=== PATIENT | male | born 1940 | race Caucasian/White ===

== ENCOUNTER 2016-02-28 17:30 | Inpatient (IN) | payer MEDICARE, OTHER ==
--- NOTE | ~2016-02-28 | DS ---
PATIENT'S NAME: VALENTINA MOORE [facility] AGE: 75 Y [address] ROOM: [id number] [place], [place] [address] LOCATION: GPCU ADMIT DATE: 02/28/2016 Discharge Summary DISCHARGE DATE: 03/06/2016 FAMILY PHYSICIAN: Sahil Tillman MD ATTENDING PHYSICIAN: Abdi Leung [facility] COURSE: The patient is a 75-year-old white male who transferred here from [place] where he had presented with a cht-ZD-vnzxkipd myocardial infarction. He underwent cardiac catheterization with Dr. Murcia with findings of multivessel coronary artery disease requiring surgical revascularization. The patient was transferred to [facility] at the family's request for coronary artery bypass grafting. On 03/01/2016, the patient underwent coronary artery bypass grafting x3 vessels by Dr. Leung with a left internal mammary artery bypass to the left anterior descending artery, right internal mammary artery bypass to the right coronary artery, and a reverse saphenous vein graft to the obtuse marginal. The patient tolerated the surgery without complication and transferred up to the ICU postoperatively. The patient extubated easily on the same operative day. He did require drip with Levophed which kept him in the ICU an additional day. He was otherwise stable. On postoperative day two, the Levophed was weaned off and the patient was found stable to transfer to the progressive care floor. While on progressive care, the patient worked with cardiac rehab for strengthening purposes. His chest tubes, pacemaking wires, and Bolanos catheter were discontinued in the routine postoperative timeframe. The patient had no healing complications. He had no runs of postoperative atrial fibrillation. The patient's blood pressures still ran low and we did have to start some low dose ProAmatine. Eventually, we were able to discontinue the ProAmatine in favor of placing a beta jayne at the time of the patient's discharge. We were unable to start an KELLEY inhibitor secondary to the lower blood pressures and this will need to be re-evaluated in followup. The patient did desire discharge to home when appropriate. He did not desire any home health care services. On 03/06/2016, the patient was found stable for discharge. DISCHARGE ORDERS: Include a cardiac prudent diet. Activity levels which require no pulling, pushing, or lifting anything heavier than 10 pounds for 6 weeks from the day of surgery. The patient is to follow up with Dr. Murcia in 2 weeks as [address] as Dr. Leung in 2 weeks. He will also follow with his primary care provider Dr. Tillman in 4 weeks. The patient should start with cardiac rehab in approximately 2 weeks in [place]. FINAL DIAGNOSES: Include fer-AZ-wffoqdtxl myocardial infarction, coronary artery disease, hypertension, and dyslipidemia. PATIENT'S NAME: VALENTINA MOORE [facility] AGE: 75 Y [address] ROOM: [id number] [place] [id number] [facility] ADMIT DATE: 02/28/2016 Discharge Summary DISCHARGE DATE: 03/06/2016 FAMILY PHYSICIAN: Sahil Tillman MD ATTENDING PHYSICIAN: Abdi Leung DISCHARGE MEDICATIONS: Include. 1. Aspirin 325 mg. 2. Coenzyme Q10 100 mg daily. 3. Coreg 3.125 mg twice a day. 4. Folic acid 1 mg daily. 5. Multivitamin daily. 6. Simvastatin 40 mg daily. 7. Prilosec 20 mg daily. 8. Amiodarone 200 mg twice a day. 9. Colace 100 mg twice a day. 10. Lasix 40 mg daily. 11. Potassium chloride 20 mEq daily. 12. Marenisco 5/325 one to two every 4-6 hours. The patient verbalizes understanding of the discharge orders. The patient discharged to home with his family in stable condition. NURY STOUT APRN FOR ABDI LEUNG, DLQ/modl /[id number] d: 03/29/161311 t: 04/09/16 0944, DISCHARGE SUMMARY
--- NOTE | ~2016-02-28 | ENPV ---
Vascular Lower Extremity Vein Mapping and Lower Extremities DVT Study Procedure Demographics Patient Name VALENTINA MOORE Date of Study 02/29/2016 Patient Number [id number] Gender Male Date of 1940 Age 75 Visit Number [id number] Height 67 Accession Number [id number] Weight 153 Referring Jadiel Luque DO Interpreting Robby Diaz MD Physician Primo Matos MD Physician Ordering Jadiel Luque Clinical Assistant Professor Physician DO Hack Saw Operator Cosme Nino, T Conclusions Summary Acute occlusive deep vein thrombosis in the right proximal posterior tibial and peroneal veins. Chronic non-occlusive deep vein thrombosis in the left popliteal vein. Bilateral greater saphenous veins are patent. Procedure Type of Study: Veins:Lower Extremity Vein Mapping, Vein Mapping, Lower Extremities DVT Study, Venous Duplex Lower Extremity Bilateral. Indications for Study:Pre-op for vein harvesting and Pre-op CABG. Appropriate Use Criteria:8 Patient Status:Routine. Study Location:Inpatient Portable. Technical Quality:Adequate visualization. - Preliminary reported to:Dr. Duvall @ [phone]. Velocities are measured in cm/s ; Diameters are measured in cm Right Lower Extremities DVT Study Measurements Right 2D and Doppler Measurements + + + + +------+------+ + !Location !Visualized!Compressibility!Thrombosis!Signal!Reflux!Reflux ! ! ! ! ! ! ! !(sec) ! + + + + +------+------+ + !GSV Thigh !Yes !Yes !None !Phasic!No ! ! + + + + +------+------+ + !Common !Yes !Yes !None !Phasic!No ! ! !Femoral ! ! ! ! ! ! ! + + + + +------+------+ + !Prox !Yes !Yes !None !Phasic!No ! ! !Femoral ! ! ! ! ! ! ! + + + + +------+------+ + !Mid Femoral!Yes !Yes !None !Phasic!No ! ! + + + + +------+------+ + !Dist !Yes !Yes !None !Phasic!No ! ! !Femoral ! ! ! ! ! ! ! + + + + +------+------+ + !Popliteal !Yes !Yes !None !Phasic!No ! ! + + + + +------+------+ + !Gastroc !Yes !Yes !None !Phasic!No ! ! + + + + +------+------+ + !PTV !Yes !No !Acute !Absent! ! ! + + + + +------+------+ + !Peroneal !Yes !No !Acute !Absent! ! ! + + + + +------+------+ + Left Lower Extremities DVT Study Measurements Left 2D and Doppler Measurements + + + + +------+------+ + !Location !Visualized!Compressibility!Thrombosis!Signal!Reflux!Reflux ! ! ! ! ! ! ! !(sec) ! + + + + +------+------+ + !GSV Thigh !Yes !Yes !None !Phasic!No ! ! + + + + +------+------+ + !Common !Yes !Yes !None !Phasic!No ! ! !Femoral ! ! ! ! ! ! ! + + + + +------+------+ + !Prox !Yes !Yes !None !Phasic!No ! ! !Femoral ! ! ! ! ! ! ! + + + + +------+------+ + !Mid Femoral!Yes !Yes !None !Phasic!No ! ! + + + + +------+------+ + !Dist !Yes !Yes !None !Phasic!No ! ! !Femoral ! ! ! ! ! ! ! + + + + +------+------+ + !Popliteal !Yes !Partial !Chronic !Phasic!No ! ! + + + + +------+------+ + !Gastroc !Yes !Yes !None !Phasic!No ! ! + + + + +------+------+ + !PTV !Yes !Yes !None !Phasic!No ! ! + + + + +------+------+ + !Peroneal !Yes !Yes !None !Phasic!No ! ! + + + + +------+------+ + Velocities are measured in cm/s ; Diameters are measured in cm + ++--------++--------+ !Superficial - Great Saphenous Vein !!Right !!Left ! + ++--------++--------+ !Location !!Diameter!!Diameter! + ++--------++--------+ !Sapheno Femoral Junction !!0.51 !!0.71 ! + ++--------++--------+ !GSV High Thigh !!0.16 !!0.3 ! + ++--------++--------+ !GSV Mid Thigh !!0.16 !!0.25 ! + ++--------++--------+ !GSV Low Thigh !!0.12 !!0.32 ! + ++--------++--------+ !GSV Knee !!0.21 !!0.16 ! + ++--------++--------+ !GSV High Calf !!0.16 !!0.18 ! + ++--------++--------+ !GSV Mid Calf !!0.21 !!0.15 ! + ++--------++--------+ !GSV Low Calf !!0.25 !!0.22 ! + ++--------++--------+ !GSV Ankle !!0.24 !!0.25 ! + ++--------++--------+ - Number of vein branches on the right side:1 above knee. - Number of vein branches on the left side:1 above knee and 1 below knee. Signature dtt: INSH LOVE dtd: 02/29/16 1648 Physician Self Edit
--- NOTE | ~2016-02-28 | HP ---
PATIENT'S NAME: VALENTINA MOORE [facility] AGE: 75 Y [address] ROOM: [place] [address] LOCATION: GPCU ADMIT DATE: 02/28/2016 History & Physical DISCHARGE DATE: 03/06/2016 FAMILY PHYSICIAN: Sahil Tillman MD ATTENDING PHYSICIAN: Abdi Duvall HISTORY OF PRESENT ILLNESS: The patient is a 75-year-old white male, who presented to [facility] in [place] with chest discomfort. He was ruled in for a yeq-KU-ykcnwcj myocardial infarction. He was taken to the catheterization lab by Dr. Del Rosario, where multi-vessel coronary artery disease was found, and he was transferred for further care to here at [facility]. Upon arrival, he is pain free without shortness of breath. He is on a heparin drip and his vital signs are completely normal. Upon discussion with him, the pain began the night before and he proceeded to the emergency department. He does have a history of prior stenting in the LAD and the right coronary artery and in circumflex, the catheterization has shown severe in-stent stenosis in all three vessels. PAST MEDICAL HISTORY: Significant for: 1. Coronary artery disease. 2. Hypertension. 3. Hypercholesterolemia. MEDICATIONS: His home medications are: 1. Aspirin 325 daily. 2. Carvedilol 25 mg b.i.d. 3. CoQ10 supplement daily. 4. Folic acid 1 mg daily. 5. Lisinopril 10 mg daily which was recently discontinued and changed to losartan 25 mg daily. 6. Multivitamin daily. ALLERGIES: ALDACTONE WHICH CAUSED HIVES. ERYTHROMYCIN GAVE HIM NAUSEA. IODINATED CONTRAST WHICH CAUSES A RASH, AND PENICILLINS WHICH ALSO CAUSES A RASH. PAST SURGICAL HISTORY: Significant for previous percutaneous intervention to his coronary arteries. SOCIAL HISTORY: The patient is a lifelong nonsmoker and does not consume much alcohol. 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 He follows with Dr. Tillman closely. PATIENT'S NAME: VALENTINA MOORE [facility] AGE: 75 Y [address] ROOM: [place] [address] LOCATION: GPCU ADMIT DATE: 02/28/2016 History & Physical DISCHARGE DATE: 03/06/2016 FAMILY PHYSICIAN: Sahil Tillman MD ATTENDING PHYSICIAN: Abdi Duvall REVIEW OF SYSTEMS: As per the history of chief complaint. Otherwise, 10-point review is negative. PHYSICAL EXAMINATION: GENERAL APPEARANCE: Reveals an alert and oriented white male, in no acute distress. VITAL SIGNS: He is in normal sinus rhythm with a normal blood pressure. He is on 2 L of oxygen and saturating 98%. HEENT: Shows his head to be normocephalic. No evidence of trauma. His extraocular muscles are intact. His pupils are equal, round, and reactive to light and accommodation. NECK: Soft without evidence of tracheal deviation. No JVD is appreciated. HEART: Regular rate and rhythm without murmur or gallop. LUNGS: Clear to auscultation bilaterally. ABDOMEN: Soft, nontender. Bowel sounds are positive. No organomegaly, aortic pulse, or aortic masses are appreciated. EXTREMITIES: Show no evidence of cyanosis, clubbing, or edema. LABORATORY AND TEST RESULTS: On transfer shows a white blood cell count of 8.3, hemoglobin of 16, hematocrit of 49, and a platelet count of 178. INR 1.3. Sodium 135, potassium 3.9, BUN of 12 with a creatinine of 0.8. Liver functions are within normal limits, and his GFR is greater than 60. He had an elevated troponin I of 1.54, elevated CPK-MB of 12.7. He will be admitted. IMPRESSION: Lum-AA-rzvxspv myocardial infarction secondary to multi-vessel coronary artery disease with in-stent stenosis. PLAN AND RECOMMENDATIONS: He will be admitted to the progressive care unit. We will continue normal saline at 100 mL an hour for 1 L and then dropped back to TKO rate. Continue heparin drip per ACS protocol, and secondary to his Plavix loading, we will obtain P2Y12 levels and plan for surgical intervention on 03/01. He and his family are understanding of the plan. Risks, benefits, and alternatives of coronary artery bypass grafting had been explained to him and his family. These are including but not limited to bleeding, requiring transfusion, return to the operative suite, myocardial infarction, cerebrovascular attack, renal and pulmonary failure, postoperative arrhythmias, postoperative infections, and operative and postoperative mortality. We will continue to follow along closely and plan on surgical intervention as noted above on 03/01/2016. PATIENT'S NAME: VALENTINA MOORE [facility] AGE: 75 Y [address] ROOM: [place] [address] LOCATION: [facility] ADMIT DATE: 02/28/2016 History & Physical DISCHARGE DATE: 03/06/2016 FAMILY PHYSICIAN: Sahil Tillman MD ATTENDING PHYSICIAN: Abdi Duvall DO VALERY GUERRERO/mark /[id number] D: 617 T: HISTORY & PHYSICAL
--- NOTE | ~2016-02-28 | ECHO ---
Transthoracic Echocardiography Report (TTE) Demographics Patient Name VALENTINA MOORE Date of Study 02/29/2016 Patient Number [id number] Visit Number [id number] Date of 1940 Room Number G6216 Gender Male Number Age 75 year(s) Referring [facility] Last Puller Cydney MAGALLANES, Physician Carlo [facility] [place] Physician Interpreting Katrin Luque MD Cook Night Physician Supervising Ordering Jadiel Luque DO, MD/MLP Physician Nurse Stress Manager Access Conclusions Contractility Score Summary Hypokinesis of the julius-septal, the infero-septal, the inferior and the Apical septal segments. Summary The estimated left ventricular ejection fraction is 45-50%. Mild concentric left ventricular hypertrophy. Diastolic assessment reveals Grade II pseudonormal diastolic function . Procedure Type of Study TTE procedure:2D Echocardiogram, M-Mode, Doppler , Color Doppler. Procedure Date Date: 02/29/2016 Start: 12:21 PM Study Location: Inpatient Portable Technical Quality: Adequate visualization Additional Indications:non stemi Appropriate Use Criteria: 9 Patient Status: Routine HR: 86 bpm BP: 141/78 mmHg M-Mode/2D Measurements LV Diastolic Dimension: 4.41 cm LV Systolic Dimension: 3.51 cm LV Septum Diastolic: 1.12 cm LV PW Diastolic: 0.8 cm AO Root Dimension: 2.4 cm Cardiac Output: 4.75 l/min AV Cusp Separation: 1.9 cm RV Diastolic Dimension: 2.01 cm LA volume: 31 ml LVOT: 2 cm RV Base: 2.47 cm LVOT VTI: 17.6 cm RV Mid: 2.02 cm LV Stroke volume: 55.26 ml TAPSE: 1.83 cm TDI-S': 14.3 cm/s Doppler Measurements AV Peak Velocity: 0.86 m/s MV Peak E-Wave: 0.62 m/s AV Peak Gradient: 2.97 mmHg MV Peak A-Wave: 0.6 m/s AV Mean Gradient: 2 mmHg MV E/A Ratio: 1.04 LVOT Peak Velocity: 0.74 m/s MV P1/2t: 38 msec TR Gradient:27.67 mmHg PV Peak Velocity: 1.44 m/s Estimated RAP:3 mmHg PV Peak Gradient: 8.29 mmHg Estimated RVSP: 31 mmHg Estimated PASP: 30.67 mmHg E' Septal Velocity: 0.05 m/s A' Septal Velocity: 0.08 m/s E' Lateral Velocity: 0.05 m/s A' Lateral Velocity: 0.12 m/s Findings Left Ventricle Mild concentric left ventricular hypertrophy. Diastolic assessment reveals Grade II pseudonormal diastolic function . Right Ventricle Normal right ventricle structure and function. Left Atrium Normal left atrial size. Right Atrium Normal right atrial size. Mitral Valve Trivial mitral regurgitation by color Doppler. Aortic Valve Normal aortic valve structure and function. Tricuspid Valve Trivial tricuspid regurgitation by color Doppler. Pulmonic Valve Normal pulmonic valve structure and function. Pericardial Effusion No evidence of pericardial effusion. Pleural Effusion No evidence of pleural effusion. Contractility Score LV regional wall motion:(0-Non visualized 1-Normal 2-Hypokinesis 3-Akinesis 4-Dyskinesis 5-Aneurysm) Signature dtt: Rebel Wilkes (cardio) dtd: 02/29/16 1221 Physician Self Edit
--- NOTE | ~2016-02-28 | OR ---
PATIENT'S NAME: VALENTINA MOORE [facility] AGE: 75 Y [address] ROOM: [address] [place], [place] [address] LOCATION: GPCU ADMIT DATE: 02/28/2016 OR/Procedure Report DISCHARGE DATE: 03/06/2016 FAMILY PHYSICIAN: Sahil Tillman MD ATTENDING PHYSICIAN: Abdi Duvall SURGEON: Abdi Duvall DO BAG TURNER: DATE OF PROCEDURE: 03/01/2016 PREOPERATIVE DIAGNOSIS: Multivessel coronary artery disease with non ST- segment elevation myocardial infarction. POSTOPERATIVE DIAGNOSIS: Multivessel coronary artery disease with non ST- segment elevation myocardial infarction. PROCEDURES PERFORMED: Coronary artery bypass grafting x3 with left internal mammary artery bypass to the left anterior descending, right internal mammary artery bypass to the right coronary artery, and reverse saphenous vein graft to the obtuse marginal. REFERRING PHYSICIAN: Dr. Del Rosario. BRIEF HISTORY: The patient is a 75-year-old white male who presented to the [facility] with xmp-HJ-lescysl myocardial infarction. He was transferred here and admitted. He has been brought to the operative suite today for revascularization. DESCRIPTION OF PROCEDURE: He was sterilely prepped and draped in the usual fashion for coronary artery bypass grafting and lower extremity vein harvest. A sternal incision was made. Median sternotomy was created with sternal saw. Concurrently to this, the saphenous vein was harvested endoscopically from the lower extremity. The sternum was divided in the midline, and Ostene and electrocautery were used for hemostasis along the marrow and sternal edges. The mammary retractor was placed along the left fadi-sternum, and the left internal mammary artery was harvested in the standard fashion utilizing surgical clips and electrocautery. It was left intact, and we did the same procedure on the right internal mammary. Prior to its division, the patient was fully heparinized. Bilateral mammaries were then divided and prepared for bypass. A sternal retractor was now placed, and the pericardium was opened. Pericardial wall was created, and cannulation sutures were placed in the ascending aorta and right atrium for bypass and cardioplegia cannulas. The patient was now cannulated and connected to the bypass pump without difficulty. The vein was now prepared for bypass. Cardiopulmonary bypass was initiated, and a crossclamp was applied. Antegrade and retrograde cardioplegia along with topical cold saline was used for cardiac arrest, and the heart arrested without difficulty. The right coronary artery was identified in the interatrial groove and opened. The right internal mammary PATIENT'S NAME: VALENTINA MOORE [facility] AGE: 75 Y [address] ROOM: [address] [place], [place] [address] LOCATION: GPCU ADMIT DATE: 02/28/2016 OR/Procedure Report DISCHARGE DATE: 03/06/2016 FAMILY PHYSICIAN: Sahil Tillman MD ATTENDING PHYSICIAN: Abdi Duvall artery was then anastomosed to it in an end-to-side fashion with 7-0 Prolene. The bulldog was removed to allow distal flow into the distal RCA. This was noted flowing into the PDA. The bulldog was then reapplied, and another dose of cardioplegia was given. A venous distal anastomosis was then created to the obtuse marginal. Another dose of cardioplegia was given. Then, the left internal mammary artery was bypassed to the left anterior descending artery, again in an end-to-side fashion with 7-0 Prolene, and the bulldog was removed from the internal mammary, showing distal flow into the LAD. The bulldog was then removed from the right internal mammary artery, and the crossclamp was removed. Partial occlusion clamp was applied. Retrograde warm blood was now given, and we performed our proximal anastomosis of the vein graft to the ascending aorta with 4-0 punch and 6-0 Prolene. Partial occlusion clamp was now removed. The vein graft was de-aired. The bulldog was removed, giving distal flow. All distal sites were hemostatic, and proximal site was hemostatic. Retrograde warm blood was now discontinued, and the retrograde cannula was removed. Ventilations were now initiated. Two atrial and one ventricular temporary pacemaking wires were placed, and we weaned from cardiopulmonary bypass without difficulty. The patient was decannulated. Appropriate volume returned from the pump to the patient, and protamine was given. Four chest tubes were placed; one in each pleural space, one in the posterior pericardial space, and one in the anterior mediastinal space. Copious amounts of antibiotic-infused saline were used to irrigate the sternum and mediastinum, and the sternum was approximated with sternal cable system. Soft tissues were now irrigated and closed in a layered fashion. All sponge, instrument, and needle counts were correct, and the patient was transferred to the intensive care unit in stable condition. DO VALERY GUERRERO/mark /[id number] CC: Sahil Tillman MD d: 03/10/16 1438 t: 03/10/162008, OPERATIVE SUMMARY
--- NOTE | ~2016-02-28 | OR ---
PATIENT'S NAME: VALENTINA MOORE [facility] AGE: 75 Y [address] ROOM: [address] [place], [place] [address] LOCATION: GICU ADMIT DATE: 02/28/2016 OR/Procedure Report DISCHARGE DATE: FAMILY PHYSICIAN: Sahil Tillman MD ATTENDING PHYSICIAN: Abdi Duvall SURGEON: Timothy Banks MD HOSPITAL INSURANCE CLERK: DATE OF PROCEDURE: 03/01/2016 The following lines were placed during the patient's coronary artery bypass grafting. The patient is a 75-year-old gentleman with a history of three-vessel coronary artery disease, status post non-Q-wave infarction. He presents today for a three-vessel bypass. He has a history of slight reduction of ejection fraction due to previous infarction of the apex of his heart. He will require an arterial line, and a flow tract for management of cardiac output and calculation of SVR. Central line will be used for fluids and for vasopressors. Additionally, the patient has terrible IV access at present. We are only able to get a 20-gauge in the hand and so a second central line will be placed onto the patient's clavicle for provision of additional IV access after his neck line is removed. Detailed discussion of risks and benefits was undertaken with the patient. He agreed to the plan as was discussed with him last night by Dr. Hayes, including arterial line, then 2 central lines, and LONA placement. PROCEDURE #1: Placement of arterial line. The left arm was selected, although the patient had already been catheterized in that arm. A point approximately 4 inches downstream from the catheterization point was selected and prepped with chlorhexidine and then topicalized using 1 mL of 1% lidocaine. Through the resultant skin wheal, a 20-gauge Arrow arterial line kit was inserted. At the point of the radial pulse, bright red blood was obtained. The wire threaded and the catheter threaded without difficulty. However, the first pass was not successful, and the second pass in the same location was successful. Bright red blood was obtained. The wire threaded and the catheter was then threaded off the wire with good return of arterial blood flow and on transduction, good waveform was noted. This was affixed to the patient's wrist using sterile Tegaderm and tape. At that point, the patient was taken to the operating room, where he underwent uneventful induction of general anesthesia and intubation. PROCEDURE #2: Procedure #[address] at that time, with the patient in Trendelenburg position. The path of the internal jugular vein was mapped using ultrasound. I gloved and gowned, while his neck was prepped with chlorhexidine. Maximal sterile barrier was placed. An 18-gauge needle was used to cannulate the marked area on the patient's neck. Dark venous blood was obtained on the first pass. The wire was threaded without difficulty. PATIENT'S NAME: VALENTINA MOORE [facility] AGE: 75 Y [address] ROOM: [place] [address] LOCATION: [facility] ADMIT DATE: 02/28/2016 OR/Procedure Report DISCHARGE DATE: FAMILY PHYSICIAN: Sahil Tillman MD ATTENDING PHYSICIAN: Abdi Duvall Brief nonsustained ectopy ceased with pullback of the wire. A small skin lacie was made and a 9-Somali, 10 cm multi-access catheter introducer was inserted in the patient's neck to its hub. The obturator lumen was then filled with a three lumen SLIC catheter that was then connected to the hub of the multi- access catheter. The entire assemblage was then sewn in place with 2-0 silk. 30 mL of blood was removed from the side arm port for prep solution for the saphenous vein. PROCEDURE #3: At that point, I withdrew from the field. An facilities maintenance assistant Kathy Knight, covered the catheter with a sterile Tegaderm and moved to the patient's left subclavian area. Prepped it with chlorhexidine, opened a second kit. With the patient in Trendelenburg, the subclavian left area was flat prepped. A large massive sterile barrier was placed and with its junction at the middle and distal thirds of the clavicle. At that point, an 18-gauge needle was inserted at the junction of middle and distal thirds of the clavicle and inserted towards the sternal notch. At approximately the second pass, dark venous blood was obtained. The wire threaded without difficulty. The dilator was passed without a skin lacie being made due to the patient's impending anticoagulation status and this was used back and forth a couple times and then the catheter which was a 7-Somali, 20 cm, three-lumen catheter, this was inserted to 18 cm and then sutured in place with 2-0 silk. All lumens flushed and navi freely and this was used for propofol and amiodarone during the case. At that point, the patient was returned to a flat position. The patient's head returned to the neutral position. His stomach was suctioned with an 18-Somali nasogastric tube. Transesophageal echo probe was then guided into the posterior pharynx and into his esophagus. The pictures obtained were of good quality and adequate for interpretation. FINDINGS PREBYPASS: 1. Slightly diminished left ventricular ejection fraction. Overall estimated EF of 40%. There appears to be a slightly dilated and akinetic segment in the apex extending completely around the apex and terminating just above, however, the majority of ventricle contracts normally leading to only a slight diminution of ejection fraction. 2. Valvular exam: Mitral valve was normal in morphology with a trace of mitral regurgitation. No evidence of stenosis and systolic anterior motion noted. Aortic valve was trileaflet with a trace of aortic insufficiency. There appears to be normal caliber aorta. Examining of the aorta, there appears to be a few discrete plaques. These measure at most 0.26 and none are freely mobile. The aorta is normal in caliber all the way down and for the majority of its length. It is normal without evidence of plaquing or intimal hyperplasia. There does not appear to be any patent foramen ovale on evaluation of that. PATIENT'S NAME: VALENTINA MOORE [facility] AGE: 75 Y [address] ROOM: [place] [address] LOCATION: GICU ADMIT DATE: 02/28/2016 OR/Procedure Report DISCHARGE DATE: FAMILY PHYSICIAN: Sahil Tillman MD ATTENDING PHYSICIAN: Abdi Duvall FINDINGS POSTBYPASS: 1. Interval improvement of ejection fraction due to presence of inotropes. 2. 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 3. Worsening of mitral regurgitation would determine mild to moderate. 4. No change in aortic valve exam. 5. No change in aorta. Thank you very much for allowing me to participate in this patient's care. If you have any questions regarding these lines, please do not hesitate to call. TIMOTHY MD Myranda STEVENS /[id number] d: 03/01/16 1917 t: 03/08/16 1326, OPERATIVE SUMMARY
[2016-02-28] MEDS ORDERED: ASPIRIN325 MG PO (19:43)
[2016-02-28] MEDS ORDERED: COENZYME Q10100 MG PO (19:44)
[2016-02-28] MEDS ORDERED: COREG 3.1253.125 MG PO (19:45)
[2016-02-28] MEDS ORDERED: FOLIC ACID1 MG PO (19:45)
[2016-02-28] MEDS ORDERED: THERA-VITE W/ B1 TAB PO (19:46)
[2016-02-28] MEDS ORDERED: COZAAR25 MG PO (19:46)
[2016-02-28] MEDS ORDERED: ZOCOR40 MG PO (19:47)
[2016-02-28 22:54] LABS: BILIRUBIN URINE NEGATIVE (NEGATIVE); BLOOD URINE NEGATIVE /UL (NEGATIVE); GLUCOSE URINE 250 mg/dL (NEGATIVE); KETONE URINE 15 mg/dL (NEGATIVE); LEUKOCYTES URINE NEGATIVE /UL (NEGATIVE); NITRITE URINE NEGATIVE (NEGATIVE); PROTEIN URINE NEGATIVE (NEGATIVE); UROBILINOGEN URINE NORMAL (NORMAL)
[2016-02-28 23:01] LABS: COLOR URINE YELLOW (YELLOW); TURBIDITY URINE CLEAR (CLEAR)
[2016-02-29 04:12] LABS: BASOPHIL % 0.1 %; HEMATOCRIT 44.2 % (37.0-53.0); HEMOGLOBIN 15.1 g/dL (11.0-16.0); IMMATURE GRANULOCYTE % 0.3 %; LYMPHOCYTE # 0.7 K/uL (0.8-4.0); LYMPHOCYTE % 8.1 %; MCH 31.1 pg (27.0-34.0); MCHC 34.2 gm/dL (32.0-36.5); MCV 90.9 fl (83.0-98.0); MONOCYTE # 0.4 K/uL (0.0-1.0); MONOCYTE % 4.2 %; MPV 9.6 fl (9.4-12.4); NEUTROPHIL # (ANC) 7.5 K/uL (1.4-9.0); NEUTROPHIL % 87.3 %; NRBC % 0 /100WBC (0-0.00); PLATELET COUNT 164 K/uL (150-450); RBC 4.86 M/uL (3.50-5.50); RDW-CV 14.1 % (11.9-14.6); WBC 8.6 K/uL (4.0-11.0)
[2016-02-29 04:33] LABS: ALBUMIN 2.8 gm/dL (3.5-5.0); ALK PHOS 86 IU/L (33-138); ALT 22 IU/L (12-78); ANION GAP 14.8 (10.0-19.0); AST 12 IU/L (10-40); BLOOD UREA NITROGEN 12 mg/dL (6-24); CALCIUM 7.9 mg/dL (8.5-10.5); CHLORIDE 108 mMol/L (96-110); CO2 21 mMol/L (22-32); CREATININE 0.8 mg/dL (0.6-1.3); ESTIMATED GFR (MDRD EQUATION) > 60; MAGNESIUM 1.9 mg/dL (1.3-2.6); POTASSIUM 3.8 mMol/L (3.7-5.1); SODIUM 140 mMol/L (135-145); TOTAL BILIRUBIN 0.5 mg/dL (0.0-1.5); TOTAL PROTEIN 5.8 g/dL (6.0-8.4)
[2016-02-29] MEDS ORDERED: PRILOSEC20 MG PO (10:55)
[2016-02-29 12:06] LABS: INR - (THERAPEUTIC) 1.1 (0.9-1.1); PROTIME 11.4 SECONDS (9.6-11.1)
[2016-02-29 13:36] LABS: BICARBONATE 20.9 mmol/L (18.0-23.0); PCO2 28 mmHg (35-45); PO2 71 mmHg (80-90)
[2016-03-01 11:19] LABS: MPV 9.7 fl (9.4-12.4); RDW-CV 13.5 % (11.9-14.6); WBC 11.8 K/uL (4.0-11.0)
[2016-03-01 11:20] LABS: HEMATOCRIT 21.9 % (37.0-53.0); MCH 31.1 pg (27.0-34.0); MCHC 36.5 gm/dL (32.0-36.5); MCV 85.2 fl (83.0-98.0); PLATELET COUNT 85 K/uL (150-450); RBC 2.57 M/uL (3.50-5.50)
[2016-03-01 11:32] LABS: PTT 51 SECONDS (25-32)
[2016-03-01 11:34] LABS: PROTIME 18.7 SECONDS (9.6-11.1)
[2016-03-01 11:35] LABS: INR - (THERAPEUTIC) 1.7 (0.9-1.1)
[2016-03-01 11:59] LABS: ALPHA ANGLE 64 degrees; CLOTTING TIME 266 seconds
[2016-03-01 12:00] LABS: ALPHA ANGLE 66 degrees (70-81); CLOT FORMATION TIME 144 seconds; CLOTTING TIME 92 seconds (43-82); MAXIMUM CLOT FIRMNESS 48 mm; MAXIMUM CLOT FIRMNESS 49 mm (51-72); MAXIMUM LYSIS 0 %
[2016-03-01 12:15] LABS: PCO2 39 mmHg (35-45); PO2 347 mmHg (80-90)
[2016-03-01 12:16] LABS: BICARBONATE 27.9 mmol/L (18.0-23.0); POTASSIUM 5.3 mEq/L (3.7-5.1); SODIUM 135 mEq/L (135-145)
[2016-03-01 12:16] LABS: PCO2 36 mmHg (35-45)
[2016-03-01 12:17] LABS: BICARBONATE 22.9 mmol/L (18.0-23.0); PO2 259 mmHg (80-90); POTASSIUM 3.7 mEq/L (3.7-5.1); SODIUM 139 mEq/L (135-145)
[2016-03-01 12:17] LABS: BICARBONATE 27.3 mmol/L (18.0-23.0); PCO2 39 mmHg (35-45); PO2 337 mmHg (80-90)
[2016-03-01 12:18] LABS: BICARBONATE 24.5 mmol/L (18.0-23.0); PCO2 38 mmHg (35-45); PO2 228 mmHg (80-90)
[2016-03-01 12:18] LABS: SODIUM 137 mEq/L (135-145)
[2016-03-01 12:19] LABS: POTASSIUM 3.9 mEq/L (3.7-5.1); SODIUM 137 mEq/L (135-145)
[2016-03-01 12:32] LABS: BICARBONATE 25.4 mmol/L (18.0-23.0); PCO2 45 mmHg (35-45)
[2016-03-01 12:34] LABS: PO2 135 mmHg (80-90)
[2016-03-01 12:46] LABS: BLOOD UREA NITROGEN 14 mg/dL (6-24); CHLORIDE 107 mMol/L (96-110); CO2 24 mMol/L (22-32); CREATININE 0.9 mg/dL (0.6-1.3); ESTIMATED GFR (MDRD EQUATION) > 60; SODIUM 141 mMol/L (135-145)
[2016-03-01 12:53] LABS: ANION GAP 13.9 (10.0-19.0); CALCIUM 7.3 mg/dL (8.5-10.5); POTASSIUM 3.9 mMol/L (3.7-5.1)
[2016-03-01 15:55] LABS: INR - (THERAPEUTIC) 1.3 (0.9-1.1); PROTIME 13.5 SECONDS (9.6-11.1)
[2016-03-02 03:38] LABS: BICARBONATE 25.5 mmol/L (18.0-23.0)
[2016-03-02 03:40] LABS: PCO2 35 mmHg (35-45); PO2 83 mmHg (80-90)
[2016-03-02 04:08] LABS: ANION GAP 12.9 (10.0-19.0); BLOOD UREA NITROGEN 14 mg/dL (6-24); CALCIUM 8.2 mg/dL (8.5-10.5); CHLORIDE 107 mMol/L (96-110); CO2 26 mMol/L (22-32); ESTIMATED GFR (MDRD EQUATION) > 60; POTASSIUM 3.9 mMol/L (3.7-5.1); SODIUM 142 mMol/L (135-145)
[2016-03-02 04:15] LABS: HEMATOCRIT 27.1 % (37.0-53.0); HEMOGLOBIN 9.3 g/dL (11.0-16.0); MCH 31.7 pg (27.0-34.0); MCHC 34.3 gm/dL (32.0-36.5); MCV 92.5 fl (83.0-98.0); MPV 9.9 fl (9.4-12.4); RBC 2.93 M/uL (3.50-5.50); RDW-CV 14.6 % (11.9-14.6); WBC 12.3 K/uL (4.0-11.0)
[2016-03-03 06:07] LABS: HEMATOCRIT 28.3 % (37.0-53.0); HEMOGLOBIN 9.4 g/dL (11.0-16.0); MCHC 33.2 gm/dL (32.0-36.5); MCV 96.3 fl (83.0-98.0); MPV 10.4 fl (9.4-12.4); RBC 2.94 M/uL (3.50-5.50); RDW-CV 14.9 % (11.9-14.6); WBC 13.5 K/uL (4.0-11.0)
[2016-03-03 06:08] LABS: ANION GAP 12.1 (10.0-19.0); BLOOD UREA NITROGEN 12 mg/dL (6-24); CALCIUM 7.6 mg/dL (8.5-10.5); CHLORIDE 103 mMol/L (96-110); CO2 27 mMol/L (22-32); CREATININE 0.9 mg/dL (0.6-1.3); ESTIMATED GFR (MDRD EQUATION) > 60; POTASSIUM 4.1 mMol/L (3.7-5.1); SODIUM 138 mMol/L (135-145)
[2016-03-06] MEDS ORDERED: CORDARONE,PACE200 MG PO (11:25)
[2016-03-06] MEDS ORDERED: COLACE100 MG PO (11:26)
[2016-03-06] MEDS ORDERED: LASIX40 MG PO (11:29)
[2016-03-06] MEDS ORDERED: K-TAB 10MEQ10 MEQ PO (11:31)
[2016-03-06] MEDS ORDERED: NORCO 5-325 TA1 EACH PO (11:33)
== END 2016-03-06 13:05 | disposition disaster alternative care site (69) | DRG 235 ==
LOC: GPCU 17:30 → GICU 17:43 → GPCU 17:43 → GICU 03-01 08:32 → GPCU 03-03 15:30
PROVIDERS: ADMIT Thoracic Surgery (Cardiothoracic Vascular Surgery)
PROC: 06BQ0ZZ Excision of Left Saphenous Vein, Open Approach (ICD-10-PCS; principal; 2016-03-01)
PROC: 021009W Bypass Coronary Artery, One Artery from Aorta with Autologous Venous Tissue, Open Approach (ICD-10-PCS; principal; 2016-03-01)
PROC: 5A1221Z Performance of Cardiac Output, Continuous (ICD-10-PCS; principal; 2016-03-01)
PROC: B24BZZ4 Ultrasonography of Heart with Aorta, Transesophageal (ICD-10-PCS; principal; 2016-03-01)
PROC: 02100Z9 Bypass Coronary Artery, One Artery from Left Internal Mammary, Open Approach (ICD-10-PCS; principal; 2016-03-01)
PROC: 02100Z8 Bypass Coronary Artery, One Artery from Right Internal Mammary, Open Approach (ICD-10-PCS; principal; 2016-03-01)
DX: I21.4 Non-ST elevation (NSTEMI) myocardial infarction (principal); R57.0 Cardiogenic shock; I10 Essential (primary) hypertension; I25.10 Atherosclerotic heart disease of native coronary artery without angina pectoris; Z95.5 Presence of coronary angioplasty implant and graft; E78.00 Pure hypercholesterolemia, unspecified; Z79.82 Long term (current) use of aspirin
CPT/HCPCS: C1769; J0282; J1644; J1650; J1885; J2250; J2270; J2405; J2440; J2720; J3370; J3475; J3480; J3490; J7030; J7040; J7050; J7060; J7121; P9045; P9047